=== PATIENT | male | born 1985 | race African-American/Black ===

== ENCOUNTER 2024-09-22 12:07 | Emergency (ER) | payer SELFPAY ==
[~2024-09-22] VITALS: Ht 188 cm; Wt 91.0 kg
[2024-09-22 12:13] VITALS: O2SAT 99
[2024-09-22] MEDS: METOPROLOL TARTRATE 5MG/5ML VIAL IV ONE (12:49)
[2024-09-22 12:52] LABS: CHLORIDE 97 mEq/L (98-107); POTASSIUM 3.5 mEq/L (3.5-5.1); SODIUM 133 mEq/L (136-145)
[2024-09-22 12:53] LABS: CALCIUM 9.1 mg/dL (8.7-10.4); CARBON DIOXIDE 17 mEq/L (21-32)
[2024-09-22 12:58] LABS: CREATININE 1.2 mg/dL (0.6-1.3); GLUCOSE 194 mg/dL (70-105); UREA NITROGEN BLOOD 16 mg/dL (9-23)
[2024-09-22 12:59] LABS: TROPONIN I HIGH SENSITIVITY 44 ng/L (3.0-53)
[2024-09-22 13:19] LABS: BASOPHILS % 0.7 % (0.0-2.0); EOSINOPHILS % 1.1 % (0.0-5.0); HEMOGLOBIN. 13.4 g/dL (14.0-18.0); LYMPHOCYTES % 21.7 % (20.0-50.0); MEAN CORPUSCULAR HEMOGLOBIN 30.6 pg (28.0-32.0); MEAN CORPUSCULAR HGB CONC 32.8 g/dL (31.0-37.0); MEAN CORPUSCULAR VOLUME 93.4 fL (80.0-94.0); NEUTROPHILS % 70.5 % (40.0-76.0); RED BLOOD CELL COUNT 4.39 mill/uL (4.7-6.1); RED CELL DISTRIBUTION WIDTH 14.5 % (11.6-14.6); WHITE BLOOD COUNT 6.6 x1000/uL (4.5-11.0)
[2024-09-22 13:20] LABS: DIFFERENTIAL COMMENT 1
[2024-09-22 13:54] LABS: ETHANOL BLOOD < 10 mg/dL (<10)
[2024-09-22 14:14] LABS: MEAN PLATELET VOLUME 10.3 fl (7.4-10.4); PLATELET 52 x1000/uL (130-400)
[2024-09-22] MEDS ORDERED: METO-396 MT (14:20)
[2024-09-22 14:45] VITALS: BP 138/95; PULSE 92; RESP 16; TEMP 36.9; O2SAT 99
== END 2024-09-22 14:50 | disposition home or self-care (01) ==
LOC: ER 12:58
DX: R55 Syncope and collapse (principal); I16.0 Hypertensive urgency; I10 Essential (primary) hypertension; Z79.899 Other long term (current) drug therapy
CPT/HCPCS: 80048; 80320; 83880; 85025; 84484; 36415; 71045; 70450; 93005; 96374; 99285; J3490; Z7610 ×2; G0480